=== PATIENT | female | born 1985 | race Asian ===

== ENCOUNTER 2021-12-07 21:39 | Emergency (ER) | payer OTHER ==
[~2021-12-07] VITALS: Ht 157.5 cm; Wt 67.6 kg
[2021-12-07] MEDS ORDERED: SODIUM CHLORIDE 0.9% 1,000 ML IV ONE (22:30)
[2021-12-07] MEDS ORDERED: ONDANSETRON HCL 4 MG/2 ML VIAL IV ONE (22:30)
[2021-12-07 23:05] LABS: Basophils # (auto) 0 10 ^3/uL (0-0.2); Eosinophils # (auto) 0.1 10 ^3/uL (0-0.8); Eosinophils % (auto) 0.8 % (0.0-7.0); Nucleated Red Blood Cells % 0.1 %
[2021-12-07 23:07] LABS: Basophils % (auto) 0.5 % (0.0-2.0); Hematocrit 39.1 % (36.0-46.0); Hemoglobin 13.1 g/dL (12.2-16.2); Lymphocytes # (auto) 2.5 10 ^3/uL (0.4-5.4); Lymphocytes % (auto) 33.8 % (10.0-50.0); Mean Corpuscular Hemoglobin 25.3 pg (28.0-32.0); Mean Corpuscular Hgb Conc. 33.4 g/dL (32.0-36.0); Mean Corpuscular Volume 75.5 fL (80.0-100.0); Monocytes # (auto) 0.3 10 ^3/uL (0-1.3); Monocytes % (auto) 4.7 % (0.0-12.0); Neutrophils # (auto) 4.5 10 ^3/uL (1.6-8.6); Neutrophils % (auto) 60.2 % (37.0-80.0); Red Blood Cells 5.18 10^6/uL (4.0-5.20); Red Cell Distribution Width 14.9 % (11.8-14.3); White Blood Cell 7.4 10^3/uL (4.4-10.8)
[2021-12-07 23:27] LABS: Albumin 3.8 g/dL (3.4-5.0); BUN/Creatinine Ratio 5.9; Calcium 9.1 mg/dL (8.5-10.1); Potassium 3.9 mmol/L (3.5-5.1)
[2021-12-07 23:30] LABS: Bilirubin, Total 0.2 mg/dL (0.2-1.0)
[2021-12-08] MEDS ORDERED: HYDR-4902 PO ×2 (03:39→05:19)
[2021-12-08] MEDS ORDERED: ONDA-144 PO ×2 (03:39→05:19)
[2021-12-08] MEDS ORDERED: CIPR-173 PO ×2 (03:39→05:19)
[2021-12-08] MEDS ORDERED: METR500T PO ×2 (03:39→05:19)
[2021-12-08 03:55] VITALS: BP 125/75
== END 2021-12-08 06:11 | disposition home or self-care (01) ==
LOC: ER 21:39
DX: K52.9 Noninfective gastroenteritis and colitis, unspecified (principal)
CPT/HCPCS: 36415; 74176; 80053; 83605; 83690; 85025